=== PATIENT | female | born 1970 ===

== ENCOUNTER 2016-09-14 10:57 | Outpatient (CLI) | payer OTHER ==
[2016-09-14 12:01] LABS: Blood Urea Nitrogen 11 mg/dL (7-17)
[2016-09-14] MEDS ORDERED: NACL ONE (13:33)
--- NOTE | 2016-09-14 14:50 | Cat Scan Report ---
CT SCAN OF THE ABDOMEN AND PELVIS WITH CONTRAST: HISTORY: Abdominal pain. TECHNIQUE: Helical CT in 1.25mm intervals following IV contrast. Sagittal and coronal reconstructions. FINDINGS: The liver is normal in size and is without focal defect. Mild fatty infiltration is noted. Cholecystectomy has been performed. No biliary dilatation is noted. The spleen and pancreas demonstrate a normal size and attenuation with no evidence of abnormal mass. The kidneys are normal in size and position with no evidence of hydronephrosis or mass. The adrenal glands are normal. There is no intestinal obstruction or ascites. Normal appendix. The abdominal aorta is normal. Hysterectomy changes. A left ovarian cyst measures 2.5 cm. The right adnexa is unremarkable. There is no evidence of peritoneal air or fluid. There is no evidence of any abnormal masses or fluid collections within the pelvis. No adenopathy is identified. The bladder is normal. IMPRESSION: Mild hepatic steatosis. 2.5 cm left ovarian cyst. Hysterectomy. Cholecystectomy. No acute inflammatory process is appreciated.
== END 2016-09-14 10:58 | disposition home or self-care (01) ==
LOC: CT 10:57
PROVIDERS: ATTEND Internal Medicine Gastroenterology
DX: N83.202 Unspecified ovarian cyst, left side (principal); K76.0 Fatty (change of) liver, not elsewhere classified; R14.3 Flatulence; Z90.49 Acquired absence of other specified parts of digestive tract; Z90.710 Acquired absence of both cervix and uterus
CPT/HCPCS: 36415; 74177; 82565; 84520; Q9967